=== PATIENT | male | born 1995 | race Caucasian/White ===

== ENCOUNTER 2020-05-29 20:39 | Emergency (ER) | payer OTHER ==
[2020-05-29 20:51] VITALS: BP 147/65; PULSE 101; RESP 20; TEMP 98.2
[2020-05-29] MEDS ORDERED: DIPH,PERTUS(ACELL)TETVAC-LF 0.5 ML VIAL IM ONE (21:04)
[2020-05-29] MEDS ORDERED: LIDOCAINE 1% INJ 10MG/ML (20 ML MDV) SQ ONE (21:04)
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
== END 2020-05-30 02:40 | disposition home or self-care (01) ==
LOC: EC 20:39
DX: S91.311A Laceration without foreign body, right foot, initial encounter (principal); Z23 Encounter for immunization; Y92.89 Other specified places as the place of occurrence of the external cause; W26.8XXA Contact with other sharp object(s), not elsewhere classified, initial encounter; Y93.89 Activity, other specified
CPT/HCPCS: 90715; 90471; 99283; 12002; J2001

== ENCOUNTER 2024-11-29 01:40 | Emergency (ER) | payer SELFPAY ==
[2024-11-29] MEDS: KETAMINE 10 MG/ML 20 ML VIAL IV STA ×4 (01:40→02:54)
[2024-11-29] MEDS: SUCCINYLCHOLINE CHLORIDE 200 MG/10 ML VIAL IV STA (01:47)
[2024-11-29] MEDS: TRANEXAMIC 1,000 MG/100ML-NACL 1,000 MG in SALINE 1 100ML.BAG IV SCH (01:57)
[2024-11-29] MEDS: DIPH,PERTUS(ACELL)TETVAC-LF 0.5 ML VIAL IM ONE (01:58)
[2024-11-29 02:03] LABS: Basophils # (A) 0.1 k/uL (0-0.2); Basophils % (A) 1 %; Eosinophils # (A) 0.1 k/uL (0-0.7); Eosinophils % (A) 1 %; HCT 44.2 % (39.0-53.0); HGB 14.6 gm/dL (13.0-17.5); Lymphocytes # (A) 3.3 k/uL (1.0-4.8); Lymphocytes % (A) 30 %; MCHC 32.9 g/dL (31.0-37.0); MCV 94.2 fL (80.0-100.0); Mean Platelet Volume 6.9; Monocytes # (A) 0.6 k/uL (0-1.0); Monocytes % (A) 5 %; Neutrophils # (A) 6.7 k/uL (1.3-7.7); Neutrophils % (A) 61 %; Platelet Count 319 k/uL (150-450); RBC 4.69 m/uL (4.30-5.90); RDW 14.4 % (11.5-15.5); WBC 10.9 k/uL (3.8-10.6)
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
[2024-11-29 02:13] LABS: Carbon Dioxide 18 mmol/L (22-30); Chloride 104 mmol/L (98-107); Glucose 148 mg/dL (74-99); Sodium 141 mmol/L (137-145)
[2024-11-29 02:14] LABS: ALT 189 U/L (4-49); AST 346 U/L (17-59); African American GFR (CKD) 87 (>60 ml/min/1.73 sqM); Albumin 4.7 g/dL (3.5-5.0); Alkaline Phosphatase 34 U/L (38-126); Anion Gap 19 mmol/L; Blood Urea Nitrogen 15 mg/dL (9-20); Calcium 8.7 mg/dL (8.4-10.2); Non-African American GFR(CKD) 75 (>60 ml/min/1.73 sqM); Total Bilirubin 0.9 mg/dL (0.2-1.3); Total Protein 7.2 g/dL (6.3-8.2)
[2024-11-29 02:22] LABS: Amphetamine Screen,Urine Not Detected (NotDetected); Barbiturate Screen,Urine Not Detected (NotDetected); Benzodiazepines Screen,Urine Not Detected (NotDetected); Cocaine Screen,Urine Not Detected (NotDetected); Methadone Screen, Urine Not Detected (NotDetected); Opiate Screen,Urine Not Detected (NotDetected); Oxycodone Screen, Urine Not Detected (NotDetected); Phencyclidine Screen,Urine Not Detected (NotDetected); Tricyclic Antidepressant,Urine Not Detected (NotDetected); Urn Cannabinoid Scrn Not Detected (NotDetected)
[2024-11-29 02:22] LABS: INR 0.9 (<1.2); Prothrombin Time 10.2 sec (10.0-12.5)
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
--- NOTE | 2024-11-29 02:36 | XR ---
EXAM: XR Right Femur, 2 Views CLINICAL HISTORY: trauma TECHNIQUE: Frontal and lateral views of the right femur. COMPARISON: No relevant prior studies available. FINDINGS: Bones/joints: Comminuted open fracture of distal femoral diaphysis and metaphysis with 2 cm shortening, moderate dorsal apex angulation, possibly extending to articular surface. No dislocation Soft tissues: Associated soft tissue swelling and gas indicating compound fracture. IMPRESSION: Comminuted open fracture of distal femoral diaphysis and metaphysis.
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
[2024-11-29 02:43] LABS: Alcohol 297 mg/dL
[2024-11-29 02:44] LABS: Potassium 4.2 mmol/L (3.5-5.1)
[2024-11-29 02:45] LABS: Partial Thromboplastin Time 18.9 sec (22.0-30.0)
[2024-11-29] MEDS: fentaNYL (PF). 1,000 MCG in SODIUM CHLORIDE 0.9% 80 ML IV SCH (02:47)
[2024-11-29] MEDS: MIDAZOLAM 2 MG/2 ML VIAL IV ONE ×2 (03:00→03:11)
--- NOTE | 2024-11-29 03:05 | CT ---
1593 images EXAM: CT Chest With Intravenous Contrast CLINICAL HISTORY: trauma TECHNIQUE: Axial computed tomography images of the chest with intravenous contrast. CTDI is 14.1 mGy and DLP is 1128.4 mGy-cm. This CT exam was performed using one or more of the following dose reduction techniques: automated exposure control, adjustment of the mA and/or kV according to patient size, and/or use of iterative reconstruction technique. Coronal and sagittal reformatted images were created and reviewed. COMPARISON: No relevant prior studies available. FINDINGS: Lungs: Small amount of posterior dependent atelectasis versus contusion in posterior right lower lobe. No mass. Pleural space: Unremarkable. No pneumothorax. No significant effusion. Heart: Unremarkable. No cardiomegaly. No significant pericardial effusion. No significant coronary artery calcifications. Bones/joints: No acute findings. Soft tissues: Unremarkable. Vasculature: Unremarkable. No thoracic aortic aneurysm. Lymph nodes: Unremarkable. No enlarged lymph nodes. Tubes, lines and devices: Tip of endotracheal tube is about 4.5 cm above the [place]ma. Tip of enteric tube reached distal third of the esophagus, travels cephalad. IMPRESSION: 1. Small amount of posterior dependent atelectasis versus contusion in posterior right lower lobe. 2. Tip of enteric tube reached distal third of the esophagus, travels cephalad. Recommend reinsertion. EXAM: CT Abdomen and Pelvis With Intravenous Contrast CLINICAL HISTORY: trauma TECHNIQUE: Axial computed tomography images of the abdomen and pelvis with intravenous contrast. CTDI is 13.3 mGy and DLP is 853.9 mGy-cm. This CT exam was performed using one or more of the following dose reduction techniques: automated exposure control, adjustment of the mA and/or kV according to patient size, and/or use of iterative reconstruction technique. Coronal and sagittal reformatted images were created and reviewed. COMPARISON: No relevant prior studies available. FINDINGS: Lung bases: Unremarkable. No mass. No consolidation. ABDOMEN: Liver: Unremarkable. No mass. Gallbladder and bile ducts: Unremarkable. No calcified stones. No ductal dilation. Pancreas: Unremarkable. No mass. No ductal dilation. Spleen: Unremarkable. No splenomegaly. Adrenals: Unremarkable. No mass. Kidneys and ureters: Unremarkable. No solid mass. No hydronephrosis. Stomach and bowel: Unremarkable. No obstruction. No mucosal thickening. PELVIS: Appendix: Normal appendix. Bladder: Unremarkable. No mass. Reproductive: Unremarkable as visualized. ABDOMEN and PELVIS: Intraperitoneal space: Unremarkable. No free air. No significant fluid collection. Retroperitoneal space: Moderate right retroperitoneal hematoma along right psoas and iliopsoas muscles surrounding the right iliac vessels. Bones/joints: No acute findings. Soft tissues: Unremarkable. Vasculature: Unremarkable. No abdominal aortic aneurysm. Lymph nodes: Unremarkable. No enlarged lymph nodes. IMPRESSION: 1. Moderate right retroperitoneal hematoma along right psoas and iliopsoas muscles surrounding the right iliac vessels. 2. No visceral organ injury. No fracture in abdomen or pelvis. <MYCVCSECTION> Communications: 11/29/24 03:31 Verify Receipt Verified receipt with clerk Hilario report given to Dr. Dumont on 11/29 03:30 (-05:00)
--- NOTE | 2024-11-29 03:05 | CT ---
EXAM: CT Head Without Intravenous Contrast CLINICAL HISTORY: ITS.REASON CT Reason: trauma TECHNIQUE: Axial computed tomography images of the head/brain without intravenous contrast. CTDI is 45.3 mGy and DLP is 1303.4 mGy-cm. This CT exam was performed using one or more of the following dose reduction techniques: automated exposure control, adjustment of the mA and/or kV according to patient size, and/or use of iterative reconstruction technique. Coronal and sagittal reformatted images were created and reviewed. COMPARISON: No relevant prior studies available. FINDINGS: Brain: Unremarkable. No hemorrhage. No significant white matter disease. No edema. Ventricles: Unremarkable. No ventriculomegaly. Bones/joints: No acute findings. Soft tissues: Large left frontal scalp hematoma associate with laceration, closed with multiple surgical [place]. Sinuses: Mild sinus disease. Mastoid air cells: Unremarkable as visualized. No mastoid effusion. IMPRESSION: No intracranial hemorrhage or skull fracture. EXAM: CT Cervical Spine Without Intravenous Contrast CLINICAL HISTORY: ITS.REASON CT Reason: trauma TECHNIQUE: Axial computed tomography images of the cervical spine without intravenous contrast. CTDI is 19.1 mGy and DLP is 521.8 mGy-cm. This CT exam was performed using one or more of the following dose reduction techniques: automated exposure control, adjustment of the mA and/or kV according to patient size, and/or use of iterative reconstruction technique. Coronal and sagittal reformatted images were created and reviewed. COMPARISON: No relevant prior studies available. FINDINGS: Vertebrae: Unremarkable. No acute fracture. Discs/spinal canal/neural foramina: No acute findings. No spinal canal stenosis. Soft tissues: Unremarkable. Tubes, lines and devices: Tip of endotracheal tube is about 4 x 5 cm above the najma. Tip of enteric tube reached distal third of the esophagus, travels cephalad. IMPRESSION: 1. No fracture or subluxation. 2. Tip of enteric tube reached distal third of the esophagus, travels cephalad. Recommend reinsertion.
--- NOTE | 2024-11-29 04:03 | CT ---
EXAM: CT Right Lower Extremity With Intravenous Contrast CLINICAL HISTORY: open fracture TECHNIQUE: Axial computed tomography images of the right lower extremity with intravenous contrast. CTDI is 18.72 mGy and DLP is 1170.9 mGy-cm. This CT exam was performed using one or more of the following dose reduction techniques: automated exposure control, adjustment of the mA and/or kV according to patient size, and/or use of iterative reconstruction technique. Coronal and sagittal reconstructions are performed. 728 images COMPARISON: No relevant prior studies available. FINDINGS: Bones/joints: Comminuted open fracture of distal third of femur involving diaphysis, metaphysis and epiphysis extending to articular surface with maximal dorsal displacement is 5.6 cm in moderate dorsal apex angulation. Laceration over anterior tibial tuberosity. Soft tissues: Associated soft tissue swelling, subcutaneous, intramuscular intrafascial gas throughout the right thigh. Moderate amount of retroperitoneal hemorrhage along the right psoas and iliopsoas muscles. Bladder: Gutierrez catheter is in place. IMPRESSION: 1. Comminuted open fracture of distal third of femur involving diaphysis, metaphysis and epiphysis extending to articular surface with maximal dorsal displacement is 5.6 cm in moderate dorsal apex angulation. 2. Moderate amount of retroperitoneal hemorrhage along the right psoas and iliopsoas muscles.
[2024-11-29] MEDS: TRANEXAMIC 1,000 MG/100ML-NACL 2,000 MG in SALINE 1 100ML.BAG IV STA (04:40)
[2024-11-29 04:59] VITALS: RESP 16
[2024-11-29 05:00] VITALS: PULSE 98
[2024-11-29 05:04] VITALS: BP 96/73; TEMP 97
== END 2024-11-29 03:12 | disposition other institution (70) ==
LOC: EC 01:40
DX: S72.91XB Unspecified fracture of right femur, initial encounter for open fracture type I or II (principal); S52.91XA Unspecified fracture of right forearm, initial encounter for closed fracture; S01.81XA Laceration without foreign body of other part of head, initial encounter; S09.90XA Unspecified injury of head, initial encounter; Z23 Encounter for immunization; V89.2XXA Person injured in unspecified motor-vehicle accident, traffic, initial encounter; Y92.410 Unspecified street and highway as the place of occurrence of the external cause
CPT/HCPCS: 36415; 94002; 86900; 86901; 80053; 83605; 84484; 85025; 85610; 85730; 86850; 86920; 80306; 80320; 72170; 73552; 71045; 72125; 70450; 71260; 74177; 73701; 90715; 99291; 96368; 96367; 96365; 96375; 96376; 27502; 25605; 36430; L1830; G0390; P9016; J2250; J0330; J0690; J3010; Q9967; 90471